=== PATIENT | female | born 1960 | race Caucasian/White ===

== ENCOUNTER 2021-05-26 07:04 | Day surgery (SDC) | payer BC ==
[2021-05-22 11:23] VITALS: BMI 37.0
[2021-05-26] MEDS ORDERED: ROPIVACAINE HCL/PF 100 MG/20 ML VIAL ONE (08:23)
[2021-05-26] MEDS ORDERED: MIDAZOLAM HCL 2 MG/2 ML SINGLE DOSE VIAL ONE (08:23)
[2021-05-26] MEDS ORDERED: ONDANSETRON 4 MG/2 ML VIAL IVPUSH PRN (09:29)
[2021-05-26] MEDS ORDERED: oxyCODONE HCL 5 MG TABLET PO PRN (09:29)
[2021-05-26] MEDS ORDERED: LACTATED RINGERS SOLUTION 1,000 ML IV SCH (09:30)
[2021-05-26] MEDS ORDERED: DEXAMETHASONE SOD PHOSPHATE 4 MG/1 ML VIAL ONE (10:03)
[2021-05-26] MEDS ORDERED: ceFAZolin SODIUM 1 GM VIAL ONE (10:03)
[2021-05-26] MEDS ORDERED: PROPOFOL 20 ML ONE (10:03)
[2021-05-26 11:59] VITALS: TEMP 97.8
[2021-05-26 13:16] VITALS: BP 134/82; PULSE 76
== END 2021-05-26 12:45 | disposition home or self-care (01) ==
LOC: FASU 07:04
PROVIDERS: ATTEND Orthopaedic Surgery
PROC: 0RNK4ZZ Release Left Shoulder Joint, Percutaneous Endoscopic Approach (ICD-10-PCS; 2021-05-26)
PROC: 0LQ24ZZ Repair Left Shoulder Tendon, Percutaneous Endoscopic Approach (ICD-10-PCS; 2021-05-26)
PROC: 0RQK4ZZ Repair Left Shoulder Joint, Percutaneous Endoscopic Approach (ICD-10-PCS; 2021-05-26)
PROC: 0RBK4ZZ Excision of Left Shoulder Joint, Percutaneous Endoscopic Approach (ICD-10-PCS; principal; 2021-05-26 09:00)
DX: M75.42 Impingement syndrome of left shoulder (principal); M75.02 Adhesive capsulitis of left shoulder; M19.012 Primary osteoarthritis, left shoulder; S43.432A Superior glenoid labrum lesion of left shoulder, initial encounter; X58.XXXA Exposure to other specified factors, initial encounter; Y93.9 Activity, unspecified; Y92.9 Unspecified place or not applicable
CPT/HCPCS: 88304-TC; 94760